=== PATIENT | female | born 1950 | race Caucasian/White ===

== ENCOUNTER 2019-04-23 13:18 | Observation (INO) | payer MEDICARE ==
[2019-04-23 14:11] LABS: ABS Basophils 0.1 10^3/ul (0-0.2); ABS Eosinophils 0.1 10^3/ul (0-0.6); ABS Lymphocytes 2.1 10^3/ul (1.0-4.8); ABS Monocytes 0.4 10^3/ul (0-0.8); ABS Neutrophils 4.1 10^3/ul (1.5-7.7); Eosinophil % 1.2 %; Hematocrit 40 % (35-47); Hemoglobin 13.5 g/dL (12.0-16.0); Lymphocyte % 30.9 %; Mean Corpuscular HGB Conc 34 g/dL (31-36); Mean Corpuscular Hemoglobin 29 pg (27-31); Mean Corpuscular Volume 84 fL (80-97); Mean Platelet Volume 9.4 fL (7.4-10.4); Platelet Count 267 10^3/uL (150-450); Red Blood Count 4.74 10^6 /uL (3.70-4.87); Red Cell Distribution Width 14 % (10-15); White Blood Count 6.8 10^3/uL (3.5-10.8)
[2019-04-23 14:14] LABS: INR 1.09 (0.82-1.09)
[2019-04-23 14:27] LABS: Albumin 4.2 g/dL (3.2-5.2); Albumin/Globulin Ratio 1.2 (1-3); BUN/Creatinine Ratio 16.1 (8-20); Calcium 9.4 mg/dL (8.6-10.3); EGFR African American 78.6 (>60); EGFR Non-African American 64.9 (>60); Globulin 3.6 g/dL (2-4); Total Bilirubin 0.5 mg/dL (0.2-1.0); Total Protein 7.8 g/dL (6.4-8.9); Troponin I 3.96 ng/mL (<0.03)
[2019-04-23] MEDS ORDERED: NS 0.9% 1000 ML** 1,000 ML IV ONE (14:35)
[2019-04-23] MEDS ORDERED: Aspirin 81 mg CHEW TAB* 81 MG TAB.CHEW PO ONE (14:35)
[2019-04-23] MEDS ORDERED: Heparin DRIP 25,000 UNITS(*) 25,000 UNITS/500 ML BAG IV SCH (14:45)
--- NOTE | 2019-04-23 14:47 | ED ---
HPI Chest Pain - HPI Summary HPI Summary: The patient is a 69-year-old female presenting to [facility] with a chief complaint of right shoulder pain radiating down the arm and upper sternal chest tightness onset on 04/18/2019. She reports that she has been experiencing various symptoms for the last few days which seem to be worsening, so she came into the ED. She notes right shoulder pain radiating down the arm with numbness this morning. She also has been experiencing dizziness for the last three days, which has been intermittent. She endorses diaphoresis, SOB, and sleep disturbance secondary to pain. She also has been experiencing GERD symptoms more than usual. She endorses fatigue, but she is otherwise asymptomatic at this time. Symptoms currently rated 1/10 in severity. Symptoms somewhat worse with exertion. She denies any calf pain or swelling, nausea, vomiting, sore throat, abdominal pain. No history of blood clots, cardiac disease, or diabetes. Past medical history significant for thyroid disease, hypertension (medicated). Family history significant for cardiac disease. Nonsmoker, rare EtOH, no substance use. Medications reviewed. Allergies noted. - History of Current Complaint Chief Complaint: EDChestPainROMI Time Seen by Provider: 04/23/19 14:23 Hx Obtained From: Patient Onset/Duration: Started Days Ago, Still Present Timing: Intermittent Initial Severity: Moderate Current Severity: Mild Pain Intensity: 1 Pain Scale Used: 0-10 Numeric Chest Pain Location: Upper Sternal Chest Pain Radiates To:: Shoulder - right, Arm - right Character: Sharp/Stabbing Aggravating Factor(s): Exertion Alleviating Factor(s): Rest Associated Signs and Symptoms: Positive: Numbness, Dizziness, Shortness of Breath, Diaphoresis. Negative: Nausea, Calf Pain/Swelling - Allergy/Home Medications Allergies/Adverse Reactions: Allergies Allergy/AdvReac Type Severity Reaction Status Date / Time latex Allergy Itching Verified 04/23/19 14:44 Home Medications: Home Medications Ascorbic Acid TAB* [Vitamin C TAB*] 500 mg PO DAILY 04/23/19 [History Confirmed 04/23/19] Cannabidiol (CBD) Extract (NF) [Epidiolex (NF)] 100 mg PO DAILY 04/23/19 [ History Confirmed 04/23/19] Cholecalciferol TAB* [Vitamin D TAB*] 1,000 unit PO DAILY 04/23/19 [History Confirmed 04/23/19] Elderberry Fruit and Flower [Black Elderberry 575 mg] 1 cap PO DAILY 04/23/19 [ History Confirmed 04/23/19] Thyroid TAB* [Thyroid TAB 30 MG*] 30 mg PO DAILY 04/23/19 [History Confirmed 01/30] Zinc 50 mg PO DAILY 04/23/19 [History Confirmed 04/23/19] PMH/Surg Hx/FS Hx/Imm Hx Endocrine/Hematology History: Reports: Hx Thyroid Disease Denies: Hx Diabetes Cardiovascular History: Reports: Hx Hypertension Respiratory History: Denies: Hx Asthma, Hx Chronic Obstructive Pulmonary Disease (COPD) GI History: Denies: Hx Ulcer - Cancer History Hx Chemotherapy: No Hx Radiation Therapy: No - Surgical History Surgical History: Yes Surgery Procedure, Year, and Place: appendectomy; titanium screw L 3rd finger - Immunization History Immunizations Up to Date: Yes Infectious Disease History: No Infectious Disease History: Denies: Hx Hepatitis, Hx Human Immunodeficiency Virus (HIV), History Other Infectious Disease, Traveled Outside the [place] in Last 30 Days - Family History Known Family History: Positive: Cardiac Disease - Social History Alcohol Use: Rare Alcohol Amount: Wine Hx Substance Use: No Substance Use Type: Reports: None Hx Tobacco Use: No Smoking Status (MU): Never Smoked Tobacco Type: Cigarettes Amount Used/How Often: For < 1 year in her twenties Have You Smoked in the Last Year: No Review of Systems Positive: Fatigue, Other - sleep disturbance with pain. Negative: Skin Diaphoresis Positive: Chest Pain - tightness in upper sternum Positive: Shortness Of Breath Negative: Vomiting, Nausea Positive: Myalgia - radiating from right shoulder down arm. Negative: Edema - calf, Other - calf pain Neurological/Mental Status: Other - intermittent dizziness Positive: Numbness - right arm All Other Systems Reviewed And Are Negative: Yes Physical Exam - Summary Physical Exam Summary: Constitutional: Well-developed, Well-nourished, Alert. (-) Distressed Skin: Warm, Dry HENT: Normocephalic; Atraumatic Eyes: Conjunctiva normal Neck: Musculoskeletal ROM normal neck. (-) JVD, (-) Stridor, (-) Tracheal deviation Cardio: Rhythm regular, rate normal, Heart sounds normal; Intact distal pulses; The pedal pulses are 2+ and symmetric. Radial pulses are 2+ and symmetric. (-) Murmur Pulmonary/Chest wall: Effort normal. (-) Respiratory distress, (-) Wheezes, (-) Rales Abd: Soft, (-) tenderness, (-) Distension, (-) Guarding, (-) Rebound Musculoskeletal: (-) Edema Lymph: (-) Cervical adenopathy Neuro: Alert, Oriented x3 Psych: Mood and affect Normal Triage Information Reviewed: Yes Vital Signs On Initial Exam: Initial Vitals Temp Pulse Resp BP Pulse Ox 96.1 F 81 18 186/101 93 04/23/19 13:23 04/23/19 13:23 04/23/19 13:23 04/23/19 13:23 04/23/19 13:23 Vital Signs Reviewed: Yes Procedures - Sedation Patient Received Moderate/Deep Sedation with Procedure: No Diagnostics - Vital Signs Vital Signs Temp Pulse Resp BP Pulse Ox 04/23/19 14:20 74 184/109 97 04/23/19 14:19 76 95 04/23/19 13:23 96.1 F 81 18 186/101 93 - Laboratory Lab Results: Lab Results 04/23/19 04/23/19 04/23/19 Range/Units 13:48 13:48 13:48 WBC 6.8 (3.5-10.8) 10^3/uL RBC 4.74 (3.70-4.87) 10^6 /uL Hgb 13.5 (12.0-16.0) g/dL Hct 40 (35-47) % MCV 84 (80-97) fL MCH 29 (27-31) pg MCHC 34 (31-36) g/dL RDW 14 (10-15) % Plt Count 267 (150-450) 10^3/uL MPV 9.4 (7.4-10.4) fL Neut % (Auto) 60.9 % Lymph % (Auto) 30.9 % [place] % (Auto) 5.4 % Eos % (Auto) 1.2 % Baso % (Auto) 1.6 % Absolute Neuts (auto) 4.1 (1.5-7.7) 10^3/ul Absolute Lymphs (auto) 2.1 (1.0-4.8) 10^3/ul Absolute Monos (auto) 0.4 (0-0.8) 10^3/ul Absolute Eos (auto) 0.1 (0-0.6) 10^3/ul Absolute Basos (auto) 0.1 (0-0.2) 10^3/ul Absolute Nucleated RBC 0.0 10^3/ul Nucleated RBC % 0.0 INR (Anticoag Therapy) 1.09 (0.82-1.09) Sodium 137 (135-145) mmol/L Potassium 4.0 (3.5-5.0) mmol/L Chloride 105 (101-111) mmol/L Carbon Dioxide 25 (22-32) mmol/L Anion Gap 7 (2-11) mmol/L BUN 14 (6-24) mg/dL Creatinine 0.87 (0.51-0.95) mg/dL Est GFR ( Amer) 78.6 (>60) Est GFR (Non-Af Amer) 64.9 (>60) BUN/Creatinine Ratio 16.1 (8-20) Glucose 96 (70-100) mg/dL Calcium 9.4 (8.6-10.3) mg/dL Total Bilirubin 0.50 (0.2-1.0) mg/dL AST 58 H (13-39) U/L ALT 58 H (7-52) U/L Alkaline Phosphatase 57 (34-104) U/L Troponin I 3.96 H* (<0.03) ng/mL Total Protein 7.8 (6.4-8.9) g/dL Albumin 4.2 (3.2-5.2) g/dL Globulin 3.6 (2-4) g/dL Albumin/Globulin Ratio 1.2 (1-3) Result Diagrams: 04/23/19 13:48 04/23/19 13:48 Lab Statement: Any lab studies that have been ordered have been reviewed, and results considered in the medical decision making process. - EKG 1329 Cardiac Rate: NL - 70 BPM EKG Rhythm: Sinus Rhythm Summary of EKG Findings: An EKG at 1329 reveals sinus rhythm at [address] Dangelo has reviewed and interpreted this EKG. 1434 Cardiac Rate: NL - 66 BPM EKG Rhythm: Sinus Rhythm Summary of EKG Findings: An EKG at 1434 reveals sinus rhythm at [address] Dangelo has reviewed and interpreted this EKG. Re-Evaluation - Re-Evaluation First Eval Re-Evaluation Time: 14:45 Comment: Patient agreeable with plan for admission. Chest Pain Course/Dx - Course Course Of Treatment: 69 y/o female presenting with right shoulder pain radiating down the arm with numbness, as well as upper sternal chest tightness onset on 04/18/2019 accompanied by intermittent episodes of dizziness, diaphoresis , and SOB. She is asymptomatic at this time. Hx includes hypertension, no other cardiac disease. FHx of cardiac disease in father. Physical exam reveals no significant abnormalities. An EKG at 1329 reveals sinus rhythm at 70 BPM, no STEMI. Blood work reveals elevated troponin of 3.96, AT of 58, ALT of 58. IV access obtained. Patient administered ASA and fluids. Patient placed on Heparin drip. Repeat EKG at 1434 reveals sinus rhythm at 66 BPM, no STEMI. I spoke with Dr. Batista from cardiology, who will consult for the patient and see her in the emergency department. He will take her to the [facility] sewer. Patient understands and agrees with plan. - Diagnoses Provider Diagnoses: NSTEMI (non-ST elevated myocardial infarction) - Provider Notifications Discussed Care Of Patient With: Julián Batista - cardiology Time Discussed With Above Provider: 14:45 Instructed by Provider To: Other - I discussed the patient's case with Dr. Batista , and he will consult for the patient and see her in the ED. He accepts the patient for admission to [facility] sewer. Discharge ED - Sign-Out/Discharge Documenting (check all that apply): Patient Departure - Patient accepted for admission by Dr. Batista. - Discharge Plan Condition: Stable Disposition: ADMITTED TO [facility] - Billing Disposition and Condition Condition: STABLE Disposition: Admitted to [facility] - Attestation Statements Document Initiated by Carol: Yes Documenting Scribe: Emi Mast Provider For Whom Carol is Documenting (Include Credential): DO Stephanie Queenibe Attestation: Emi Pizarro scribed for Dr. Mateo Dangelo DO on 04/23/19 at 1942. Scribe Documentation Reviewed: Yes Provider Attestation: The documentation as recorded by the Emi solorzano accurately reflects the service I personally performed and the decisions made by me, Dr. Mateo Dangelo DO Status of Scribdebora Document: Viewed
[2019-04-23 14:58] LABS: Activated Partial Thrombo Time 37.1 seconds (26.0-38.0)
[2019-04-23] MEDS ORDERED: Heparin for STEMI(*) 5,000 UNITS/ML 1 ML VIAL IV ONE ×2 (15:05→15:10)
[2019-04-23] MEDS ORDERED: Diazepam TAB(*) 5 MG PO PRN (15:12)
[2019-04-23] MEDS ORDERED: diPHENhydraMINE PO* 25 MG PO PRN (15:12)
[2019-04-23] MEDS ORDERED: Ticagrelor* 90 MG TAB PO ONE (15:13)
[2019-04-23] MEDS ORDERED: Heparin(*) 1000 UNIT/ML 10 ML VIAL CATH LAB IV ONE (15:43)
[2019-04-23] MEDS ORDERED: Midazolam* 1 MG/ML 5 ML VIAL (5 MG) ONE (15:43)
[2019-04-23] MEDS ORDERED: fentaNYL* 50 MCG/ML 2 ML VIAL (100 MCG VIAL) ONE (15:43)
[2019-04-23] MEDS ORDERED: VERAPAMIL 2.5 MG/ML 2 ML VIAL ** 5 mg/2 ml ONE (15:43)
[2019-04-23] MEDS ORDERED: Heparin 2 UNITS/ML IVPREMIX* 2,000 ML IV ONE (15:44)
[2019-04-23] MEDS ORDERED: Lidocaine 1% INJ* 10 MG/ML 30 ML SDV ONE (15:44)
[2019-04-23] MEDS ORDERED: Iohexol 350 (CONTRAST) 200 ML MDV IV ONE ×2 (15:44→16:18)
[2019-04-23] MEDS ORDERED: nitroGLYCERIN DRIP* 25,000 MCG/250 ML BTL ONE (15:44)
[2019-04-23] MEDS ORDERED: NS 0.9% 1000 ML** 1,000 ML IV SCH (16:45)
[2019-04-23] MEDS ORDERED: Acetaminophen TAB* 325 MG PO PRN (16:47)
--- NOTE | 2019-04-23 18:26 | HP ---
CC: Dr. Laurent Gustafson * ADMISSION HISTORY AND PHYSICAL: DATE OF ADMISSION: 04/23/19 INDICATION FOR ADMISSION: NSTEMI. HISTORY OF PRESENT ILLNESS: The patient is a 69-year-old female with a history of obesity, hypertension, hypercholesterolemia, strong family history of coronary artery disease who came to the emergency room because of chest and throat pain. The patient states for the last 4 days, she has felt unwell. She has been profoundly fatigue. She has also had episodes where she felt throat discomfort radiating into her right shoulder sometimes occurring with exertion, sometimes occurring at rest. The patient denies any palpitations. She denies any lightheadedness, dizziness, or syncope. The patient does describe some shortness of breath. No positive episodes of diaphoresis. The patient had these symptoms this morning and was urged by her friend to come to the emergency room. On arrival to the emergency room, her EKG showed minimal ST segment elevations in lead 2, 3, AVF, and lead V6. Her initial troponin level was 3.96. PAST MEDICAL HISTORY: Significant for: 1. Hypertension. 2. Hypercholesterolemia. 3. Hypothyroidism. MEDICATIONS: Outpatient medications: 1. Zinc 50 mg a day. 2. Elderberry fruit. 3. Ascorbic acid 500 mg a day. 4. Thyroid 30 mg daily. 5. Vitamin D 1000 units a day. ALLERGIES: LATEX. SOCIAL HISTORY: She works at office. She denies tobacco or alcohol use. She does not get any regular exercise but does walk occasionally. FAMILY HISTORY: Positive for early coronary artery disease in her brothers and uncles. REVIEW OF SYSTEMS: Negative for fevers and chills. Positive for weight gain of 20 pounds in the last 3 months. Positive for stress. Negative for changes in bowel or bladder habits. Other 12 points review is unremarkable. PHYSICAL EXAMINATION VITAL SIGNS: Height is 5 feet 6 inches, weight is 270 pounds, temperature 96.1, heart rate 81, blood pressure 186/101, respiratory rate 18, oxygen saturation is 93% on room air. HEENT: Sclerae are anicteric. Oropharynx is pink without erythema. Carotids are 2+ without bruits. JVD is normal. Thyroid is normal. LUNGS: Clear to auscultation bilaterally. No dullness on percussion. CARDIAC EXAM: S1 and S2 without any murmurs, rubs, or gallops. PMI is normal. ABDOMEN: Soft, nontender, and nondistended with normoactive bowel sounds. EXTREMITIES: Show minimal edema. She has 2+ pulses throughout. NEURO: The patient is awake, alert, oriented. She moves all 4 extremities equally. LABORATORY STUDIES: CBC within normal limits. Chemistries is within normal limits. Again troponin level is elevated at 3.96. INR is 1.09. IMAGING: Again, EKG shows normal sinus rhythm with minimal ST segment elevation in inferior leads. IMPRESSION: This is a 69-year-old female with recent symptoms of chest pain, throat pain, and right shoulder pain consistent with angina. Her initial EKG is consistent with ST segment elevation. She has moderate troponin level of 3.96, this is likely consistent with NSTEMI. The patient is started on heparin, she was given aspirin and Brilinta. The patient is scheduled for cardiac catheterization. Risks and benefits of this were described in great detail with the patient, she is willing to proceed. Further recommendations pending results of her cardiac catheterization. [id number]/[facility] #: [id number] [facility] HOSPITALObinna
--- NOTE | 2019-04-23 19:09 | CATH ---
"*[facility]* [place] [address] Main: [phone] [email or web address] Cardiac Catheterization Patient: Amie Bowens : 1950 Study Date: 04/23/2019 Age: 69 Gender: F HR: Height: 66 in /167.6 cm BSA: 2.46 m^2 Weight: 269.9 lb /122.7 kg BMI: 43.7 kg/m^2 [facility] Coordinator: Julián Batista MD Ordering Physician: Julián Batista MD Referring Physician: Julián Batista MD, Lester Yeboah, --- - Left coronary angiography. - Right coronary angiography. - Left heart catheterization with angiography. Summary: 1. Left ventricle: Systolic function is mildly to moderately reduced. The estimated ejection fraction is 35-40%. Moderate hypokinesis of the anteroapical myocardium. 2. Normal Coronary Arteries. Recommendations: Treatment for Non ischemic Cardiomyopathy (Takasubo's) History: Risk factors: Hypertension. Family history is significant for coronary artery disease. Labs, prior tests, procedures, and surgery: Blood tests: Troponin I (pre-procedure) of 3.96 ng/ml. International normalized ratio (INR) of 1.09. Partial thromboplastin time (PTT) of 37.1 sec. Serum potassium (K) of 4 mEq/l. Serum sodium (Na) of 137 mEq/l. Serum creatinine (current admission) of 0.87 mg/dl. Blood urea nitrogen of 14 mg/dl. Glucose of 96 mg/dl. Platelet count of 267 th/ul. White blood cell count (WBC) of 0.01 th/ul. Red blood cell count (RBC) of 4740 th/ul. Hematocrit of 40 %. Hemoglobin (pre-procedure) of 13.5 g/dl. Study data: Location: Catheterization laboratory. Consent: The risks, benefits, and alternatives to the procedure were explained to the patient and/or their healthcare contact center representative and written informed consent was obtained. All available pre-procedure labs were reviewed. Height: 167.6 cm. 66 in. Weight: 122.7 kg. 269.9 lb. Body surface area: 2.46 m^2. Body mass index: 43.7 kg/m^2. Procedure: 1. Initial setup. The patient was brought to the laboratory. Surface ECG leads, blood pressure measurements, and pulse oximetric signals were monitored. A baseline seven lead ECG was recorded. A time out was observed per protocol. 2. Skin preparation. The planned puncture sites were prepped and draped in the usual sterile manner. 3. Local anesthesia. 1% lidocaine was administered. 4. Sedation. was administered. 5. Local anesthesia. 1% lidocaine (2 ml) was administered. 6. Supplemental oxygen. Oxygen, 2 L/min was administered throughout the procedure. 7. Right radial artery access. A 6F Glidesheath Slender sheath was advanced into the vessel. 8. Supplemental oxygen. Oxygen, 4 L/min was administered throughout the procedure. 9. Supplemental oxygen. Oxygen, 5 L/min was administered throughout the procedure. 10. Selective left coronary angiography. A 5F FL 3.5 Diagnostic Impulse catheter was advanced into the left coronary vessel ostium under fluoroscopic guidance. Contrast was injected. Images were obtained in multiple projections. 11. Selective right coronary angiography. A 5F AR 1 Impulse catheter was advanced into the right coronary vessel ostium under fluoroscopic guidance. Contrast was injected. Images were obtained in multiple projections. 12. Left heart catheterization with angiography. A 5F PIG Short Radial catheter was advanced across the aortic valve to the left ventricle under fluoroscopic guidance. 35 ml of contrast was injected at 10 ml/s. 13. Supplemental oxygen. Oxygen, 2 L/min was administered throughout the procedure. 14. Right radial artery hemostasis. Vessel closure was achieved with a Regular Vasc Band device. Study completion: Minimal estimated blood loss. All catheters inserted during the procedure were removed. There were no apparent complications. Administered medications: Heparin, 4,000units, subcutaneously. Heparin, infusion, at a rate of 1,000units/hr, IV was discontinued. Aspirin, 324mg, PO. Fentanyl, 25mcg, IV. BRILINTA (Ticagrelor), 180mg, PO. VALIUM (Diazepam), 5mg, PO. BENADRYL (Diphenhydramine), 25mg, PO. (Radial) Nitroglycerin, 300mcg, intra-arterially. (Radial) Verapamil, 3mg, intra-arterially. VERSED (Midazolam), for a total dose of 3mg, IV. Contrast: Omnipaque 350 85 ml (total dose). Omnipaque 350 315 ml (wasted). Radiation: Fluoroscopy dose: 156.8 cGy. Discharge: The patient tolerated the procedure well and was discharged from the lab in stable condition. Findings Coronary arteries: The coronary circulation is co-dominant. Left main: Normal, 0% stenosis. LAD: Normal, 0% stenosis. Left circumflex: Normal, 0% stenosis. Right coronary: Normal, 0% stenosis. Left ventricle: Systolic function is mildly to moderately reduced. The estimated ejection fraction is 35-40%. Regional wall motion abnormalities: Moderate hypokinesis of the anteroapical myocardium. Hemodynamics: + + + |Stage description |Condition 1 - | + + + |LV pressure s/d, ed |142/17, 28, dP/be=3842 mm Hg/s| + + + |Arterial pressure s/d (m)|142/77 (108) | + + + Prepared and electronically signed by Julián Batista MD 04/23/2019 19:09"
[2019-04-23] MEDS: Carvedilol TAB* 3.125 MG PO SCH (20:48)
[2019-04-24 06:45] LABS: Anion Gap 8 mmol/L (2-11); BUN/Creatinine Ratio 14.6 (8-20); Blood Urea Nitrogen 12 mg/dL (6-24); CO2 Carbon Dioxide 22 mmol/L (22-32); Calcium 8.6 mg/dL (8.6-10.3); Chloride 109 mmol/L (101-111); Cholesterol 180 mg/dL; EGFR African American 84.1 (>60); EGFR Non-African American 69.5 (>60); Glucose 98 mg/dL (70-100); HDL Cholesterol 40.1 mg/dL; LDL Cholesterol 106 mg/dL; Potassium 3.7 mmol/L (3.5-5.0); Sodium 139 mmol/L (135-145); Triglycerides 169 mg/dL
[2019-04-24 06:54] LABS: Troponin I 2.56 ng/mL (<0.03)
[2019-04-24] MEDS: Carvedilol TAB* 3.125 MG PO SCH (07:51)
[2019-04-24] MEDS ORDERED: Lisinopril TAB* 5 MG PO ONE (08:31)
[2019-04-24] MEDS ORDERED: Lisinopril TAB* 5 MG PO SCH (09:00)
[2019-04-24] MEDS ORDERED: Aspirin 81 mg CHEW TAB* 81 MG TAB.CHEW PO SCH (09:00)
[2019-04-24 09:38] LABS: Creatine Kinase 161 U/L (10-223)
[2019-04-24 09:43] LABS: CKMB ng/mL 40.5 ng/mL (0.6-6.3)
[2019-04-24 09:44] LABS: CKMB ng/mL 18.2 ng/mL (0.6-6.3)
--- NOTE | 2019-04-24 09:46 | PN ---
<Kylah Monte - Last Filed: 04/24/19 09:41> Subjective Date of Service: 04/24/19 - Troponin elevation Interval History: No events last night. Patient has not had recurrent c/o chest pain since presentation. States dyspnea resolved last night. She offers no complaints at this time. Medications Active Medications: Acetaminophen (Tylenol Tab*) 650 mg PO Q4H PRN PRN Reason: PAIN - MILD Atorvastatin Calcium (Lipitor*) 20 mg PO 1700 SVETLANA Carvedilol (Coreg Tab*) 3.125 mg PO BID [facility] Last Admin: 04/24/19 07:51 Dose: 3.125 mg Lisinopril (Prinivil Tab*) 5 mg PO DAILY [facility] Objective Vital Signs: Temp Pulse Resp BP Pulse Ox 97.5 F 60 17 128/65 97 04/24/19 06:39 04/24/19 06:39 04/24/19 07:48 04/24/19 06:39 04/24/19 06:39 Oxygen Devices in Use Now: None Appearance: Sitting upright in bed, A+OX3. Eyes: No Scleral Icterus, PERRLA Ears/Nose/Mouth/Throat: Mucous Membranes Moist Neck: Trachea Midline, - - unclear JVP. Respiratory: Symmetrical Chest Expansion and Respiratory Effort, Clear to Auscultation Cardiovascular: RRR, No Edema, - - Normal S1, S2. Extremities: No Edema, - - right radial access site intact, 3+ radial pulse.no hematoma. non tender to palpation. Neurological: Alert and Oriented x 3 Lines/Tubes/Other Access: Clean, Dry and Intact Peripheral IV Laboratory Results: 04/23/19 13:48 04/24/19 05:50 INR (Anticoag Therapy) 1.09 (0.82-1.09) 04/23/19 13:48 APTT 37.1 seconds (26.0-38.0) 04/23/19 13:48 Total Bilirubin 0.50 mg/dL (0.2-1.0) 04/23/19 13:48 AST 58 U/L (13-39) H 04/23/19 13:48 ALT 58 U/L (7-52) H 04/23/19 13:48 Alkaline Phosphatase 57 U/L (34-104) 04/23/19 13:48 Total Protein 7.8 g/dL (6.4-8.9) 04/23/19 13:48 Albumin 4.2 g/dL (3.2-5.2) 04/23/19 13:48 Globulin 3.6 g/dL (2-4) 04/23/19 13:48 Albumin/Globulin Ratio 1.2 (1-3) 04/23/19 13:48 Triglycerides 169 mg/dL 04/24/19 05:50 Cholesterol 180 mg/dL 04/24/19 05:50 LDL Cholesterol 106 mg/dL 04/24/19 05:50 HDL Cholesterol 40.1 mg/dL 04/24/19 05:50 04/23/19 04/24/19 13:48 05:50 Troponin I 3.96 H* 2.56 H* Laboratory Results - last 24 hr 04/23/19 04/23/19 04/23/19 13:48 13:48 13:48 WBC 6.8 RBC 4.74 Hgb 13.5 Hct 40 MCV 84 MCH 29 MCHC 34 RDW 14 Plt Count 267 MPV 9.4 Neut % (Auto) 60.9 Lymph % (Auto) 30.9 Gilliam % (Auto) 5.4 Eos % (Auto) 1.2 Baso % (Auto) 1.6 Absolute Neuts (auto) 4.1 Absolute Lymphs (auto) 2.1 Absolute Monos (auto) 0.4 Absolute Eos (auto) 0.1 Absolute Basos (auto) 0.1 Absolute Nucleated RBC 0.0 Nucleated RBC % 0.0 INR (Anticoag Therapy) 1.09 APTT 37.1 Sodium 137 Potassium 4.0 Chloride 105 Carbon Dioxide 25 Anion Gap 7 BUN 14 Creatinine 0.87 Est GFR ( Amer) 78.6 Est GFR (Non-Af Amer) 64.9 BUN/Creatinine Ratio 16.1 Glucose 96 Calcium 9.4 Total Bilirubin 0.50 AST 58 H ALT 58 H Alkaline Phosphatase 57 Total Creatine Kinase 271 H CK-MB (CK-2) 40.5 H Troponin I 3.96 H* Total Protein 7.8 Albumin 4.2 Globulin 3.6 Albumin/Globulin Ratio 1.2 Triglycerides Cholesterol LDL Cholesterol HDL Cholesterol 04/24/19 05:50 WBC RBC Hgb Hct MCV MCH MCHC RDW Plt Count MPV Neut % (Auto) Lymph % (Auto) Gilliam % (Auto) Eos % (Auto) Baso % (Auto) Absolute Neuts (auto) Absolute Lymphs (auto) Absolute Monos (auto) Absolute Eos (auto) Absolute Basos (auto) Absolute Nucleated RBC Nucleated RBC % INR (Anticoag Therapy) APTT Sodium 139 Potassium 3.7 Chloride 109 Carbon Dioxide 22 Anion Gap 8 BUN 12 Creatinine 0.82 Est GFR ( Amer) 84.1 Est GFR (Non-Af Amer) 69.5 BUN/Creatinine Ratio 14.6 Glucose 98 Calcium 8.6 Total Bilirubin AST ALT Alkaline Phosphatase Total Creatine Kinase 161 CK-MB (CK-2) 18.2 H Troponin I 2.56 H* Total Protein Albumin Globulin Albumin/Globulin Ratio Triglycerides 169 Cholesterol 180 LDL Cholesterol 106 HDL Cholesterol 40.1 Diagnostic Imaging: To view the full procedure details, close this document and click on the camera icon from the Reports list. *[facility]* [place] [address] Main: [phone] [email or web address] Cardiac Catheterization Patient: Amie Bowens : 1950 Study Date: 04/23/2019 Age: 69 Gender: F HR: Height: 66 in /167.6 cm BSA: 2.46 m^2 Weight: 269.9 lb /122.7 kg BMI: 43.7 kg/m^2 Poultry Husbandry Teacher: Julián Batista MD Ordering Physician: Julián Batista MD Referring Physician: Julián Batista MD, Lester Yeboah, --- - Left coronary angiography. - Right coronary angiography. - Left heart catheterization with angiography. Summary: 1. Left ventricle: Systolic function is mildly to moderately reduced. The estimated ejection fraction is 35-40%. Moderate hypokinesis of the anteroapical myocardium. 2. Normal Coronary Arteries. Recommendations: Treatment for Non ischemic Cardiomyopathy (Takasubo's) History: Risk factors: Hypertension. Family history is significant for coronary artery disease. Labs, prior tests, procedures, and surgery: This report is only to be considered final once signed by the Provider(s) as displayed in the "<Electronically Signed by >" field (s). Absence of a signature indicates the report is in a draft status and still needs to be finalized. In the event this document was created by someone other than the signing Provider, the individual initiating the document will be listed in the "Entered by:" or "Dictated by:" segal. EKG Data: 04/24/2019; Sinus rhythm rate [address] segment elevation in inferolateral leads. Telemetry reviewed ; Sinus rhythm rate 70's no PVC/VT Assessment/Plan #1 c/o Dyspnea with chest pain in the setting of minimal inferolateral ST elevation and troponin elevation. C did not reveal obstructive CAD. + anterior hypokinesis LVEF 35-40% on LV gram ? Takotsubo. Echo pending at this time. On Coreg 3.125mg Po BID, Lisinopril 2.5m/day. will increase Lisinopril to 5mg/day. Add Lipitor 20 QHS ( LDL 109) and ASA 81/day. Right radial access site intact, no hematoma. 3+ radial pulse. #2 h/o HTN; currently normotensive of Coreg and ACEI #3 h/o hypercholesterolemia;now on low dose statin therapy. Will need repeat FLP/LFT in 6 weeks time. Of note she had mild transaminitis 04/23/2019. #4 disposition; pending course. await echo. Will likely sign off if echo c/w LV gram from 04/23/2019. Will d/w Dr. Celaya. Attending: Olivia Celaya <Olivia Celaya - Last Filed: 04/24/19 16:09> Medications Active Medications: Acetaminophen (Tylenol Tab*) 650 mg PO Q4H PRN PRN Reason: PAIN - MILD Aspirin (Aspirin 81 Mg Chew Tab*) 81 mg PO DAILY [facility] Last Admin: 04/24/19 10:30 Dose: 81 mg Atorvastatin Calcium (Lipitor*) 20 mg PO 1700 [facility] Carvedilol (Coreg Tab*) 3.125 mg PO BID [facility] Last Admin: 04/24/19 07:51 Dose: 3.125 mg Lisinopril (Prinivil Tab*) 5 mg PO DAILY [facility] Objective Vital Signs: Temp Pulse Resp BP Pulse Ox 98.6 F 65 17 116/57 94 04/24/19 11:23 04/24/19 11:23 04/24/19 11:23 04/24/19 11:23 04/24/19 11:23 Laboratory Results: 04/23/19 13:48 04/24/19 05:50 INR (Anticoag Therapy) 1.09 (0.82-1.09) 04/23/19 13:48 APTT 37.1 seconds (26.0-38.0) 04/23/19 13:48 Total Bilirubin 0.50 mg/dL (0.2-1.0) 04/23/19 13:48 AST 58 U/L (13-39) H 04/23/19 13:48 ALT 58 U/L (7-52) H 04/23/19 13:48 Alkaline Phosphatase 57 U/L (34-104) 04/23/19 13:48 CK-MB (CK-2) 18.2 ng/mL (0.6-6.3) H 04/24/19 05:50 Total Protein 7.8 g/dL (6.4-8.9) 04/23/19 13:48 Albumin 4.2 g/dL (3.2-5.2) 04/23/19 13:48 Globulin 3.6 g/dL (2-4) 04/23/19 13:48 Albumin/Globulin Ratio 1.2 (1-3) 04/23/19 13:48 Triglycerides 169 mg/dL 04/24/19 05:50 Cholesterol 180 mg/dL 04/24/19 05:50 LDL Cholesterol 106 mg/dL 04/24/19 05:50 HDL Cholesterol 40.1 mg/dL 04/24/19 05:50 04/23/19 04/24/19 13:48 05:50 Troponin I 3.96 H* 2.56 H* Assessment/Plan The patient was seen and examined by me personally. She is feeling very well, no longer has shoulder and chest pain. Stress at home has been diminished. Echo shows EF40- 45%, improved, apical severe hypokinesis. We discussed mechanism of Takasubo syndrome. We discussed CM, treatment, probable normalization with medication, lifestyle changes, time. I agree with the above recommendations for CM and CAD risks. Patient interested in cardiac rehab.
--- NOTE | 2019-04-24 10:03 | ECHO ---
*[facility]* [place] [address] Fax #: [phone] Transthoracic Echocardiogram Patient: Amie Bowens : 1950 Study Date: 04/24/2019 Age: 69 Gender: F HR: 61 bpm Height: 66 in /167.6 cm BSA: 2.27 m^2 Weight: 269.4 lb /122.5 kg BMI: 43.6 kg/m^2 *Inspector Quality Assurance: * Emily Mazariegos RDCS RN *Referring Physician: * Julián Batista MD *Reading Physician: * Olivia Celaya MD Indications: Chest Pain, unspecified. History: Risk factors: Hypertension. Morbidly obese. Family history is significant for coronary artery disease. Conclusions Summary: - Procedure narrative: Image quality was fair. The patient did not want Definity used to enhance imaging. - Left ventricle: Wall thickness is mildly increased. Systolic function is mildly to moderately reduced. The estimated ejection fraction is 40-45%. Marked hypokinesis of the apical on third of the myocardium. Doppler parameters are consistent with abnormal left ventricular relaxation (grade 1 diastolic dysfunction). - Right ventricle: Wall thickness is mildly to moderately increased. Systolic function is normal. - All valves appear structurally normal with normal function. - Ascending aorta: The ascending aorta is mildly dilated at 3.6 cm. - Pulmonary arteries: Systolic pressure cannot be accurately estimated. - No prior echocardiogram to compare. Study data: Transthoracic echocardiogram. Procedure: Transthoracic echocardiography was performed. Image quality was fair. The study was technically limited due to body habitus. The patient did not want Definity used to enhance imaging. Complete 2D, spectral Doppler, and color flow Doppler. Location: Bedside. Patient status: Observation. Patient room number: 443-01. Rhythm: Normal sinus rhythm. Findings Left ventricle: The cavity size is normal. Wall thickness is mildly increased. Systolic function is mildly to moderately reduced. The estimated ejection fraction is 40-45%. Regional wall motion abnormalities: Hypokinesis of the apical myocardium. Doppler parameters are consistent with abnormal left ventricular relaxation (grade 1 diastolic dysfunction). Right ventricle: The cavity size is at the upper limits of normal. Wall thickness is mildly to moderately increased. Systolic function is normal. Left atrium: The atrium is normal in size. Right atrium: The atrium is normal in size. Mitral valve: The leaflets are mildly thickened. There is no evidence of stenosis. There is no significant regurgitation. Aortic valve: Not well visualized. The leaflets are mildly thickened. There is no evidence of stenosis. There is no regurgitation. Tricuspid valve: Not well visualized. There is no significant regurgitation. Pulmonic valve: Not well visualized. There is no evidence of stenosis. There is no regurgitation. Aorta: Aortic root: The aortic root is not dilated. Ascending aorta: The ascending aorta is mildly dilated at 3.6 cm. Aortic arch: The aortic arch is not dilated. Pericardium: A prominent pericardial fat pad is present. There is no significant pericardial effusion. Pulmonary arteries: Not well visualized. Systolic pressure cannot be accurately estimated. Systemic veins: Inferior vena cava: Not well visualized. Measurements Left ventricle Value Ref Right atrium Value Ref MALINDA, LAX 4.0 cm 3.8 - 5.2 ML dim, ES, A4C 3.5 cm 2.6 - 4.4 ESD, LAX 2.8 cm 2.2 - 3.5 SI dim, ES, A4C 4.6 cm 3.4 - 5.3 FS, LAX 30 % 27 - 45 PW, ED (H) 1.2 cm 0.6 - 0.9 Aortic valve Value Ref IVS/PW, ED 0.99 Ghulam diam, ED 2.0 cm --------- E', lat ghulam, TDI (L) 7.0 cm/sec >=10.0 Ghulam diam/bsa, ED 0.9 cm/m^2 -- ------- E/e', lat ghulam, 10 Peak v, S 1.1 m/sec ----- ---- TDI VTI, S 21.8 cm --------- E', med ghulam, TDI (L) 4.9 cm/sec >=7.0 Mean grad, S 3.0 mm Hg -- ------- E/e', med ghulam, 14 Peak grad, S 4.0 mm Hg ----- ---- TDI LVOT/AV, VTI ratio 0.89 --------- E', avg, TDI 6.0 cm/sec E/e', avg, TDI 12 <=14 Mitral valve Value Re f Peak E 0.7 m/sec --------- LVOT Value Ref Peak A 1 m/sec --------- Peak ana laura, S 0.89 m/sec Decel time 232 ms --------- VTI, S 19.5 cm Peak E/A ratio 0.7 --------- Mean grad, S 2 mm Hg Pulmonic valve Value Ref Ventricular septum Value Ref Peak v, S 0.87 m/sec --------- IVS, ED (H) 1.2 cm 0.6 - 0.9 Peak grad, S 3.0 mm Hg --------- Right ventricle Value Ref Aortic root Value Ref AW thickness, ED (H) 0.9 cm 0.1 - 0.5 Root diam 2.7 cm <4.3 MALINDA, LAX 3.0 cm MALINDA minor ax, (H) 3.8 cm 1.9 - 3.5 Ascending aorta Value Ref A4C mid AAo AP diam, S 3.6 cm --------- Left atrium Value Ref Aortic arch Value Ref AP dim, ES 3.80 cm 2.70 - Arch diam 2.8 cm --------- 3.80 ML dim, A4C 3.6 cm Decending aorta Value Ref SI dim, A4C 4.5 cm Saul peak ana laura 0.63 m/sec --------- Vol/bsa, ES, 1-p 19 ml/m^2 11 - 40 A4C Vol/bsa, ES, A/L 25 ml/m^2 16 - 34 Legend: (L) and (H) campbell values outside specified reference range. Prepared and electronically signed by Olivia Celaya MD 04/24/2019 10:03
--- NOTE | 2019-04-24 13:01 | CONSULT ---
Cardiology Note Patient states she used a toothbrush in the bathroom that was not wrapped and is concerned it was a used toothbrush from the prior occupant of her room. clerk to justice notified and asked up today floor covering printer assistant to determine actions needed if any from an infectious risk standpoint.
[2019-04-24 13:40] VITALS: BP 116/57
--- NOTE | 2019-04-24 14:40 | DS ---
CC: Dr. Laurent Gustafson * DISCHARGE SUMMARY: DATE OF ADMISSION: 04/23/19 TENTATIVE DATE OF DISCHARGE: Pending no complications, 04/24/19. ATTENDING PHYSICIAN: Dr. Olivia Celaya.* (DICTATED BY JOHN BRIONES NP) PRIMARY PHYSICIAN: Dr. Laurent Gustafson. ADMITTING DIAGNOSES: 1. Non-ST elevation myocardial infarction. 2. History of hypertension. 3. History of hypercholesterolemia. DISCHARGE DIAGNOSES: 1. 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 Cardiac catheterization did not reveal obstructive coronary disease, LVEF on transthoracic echo 04/24/19, 40% to 45% with hypokinesis involving apical region. 2. History of hypercholesterolemia, now on Lipitor therapy. Mild transaminitis during the course of stay. We will need to repeat fasting lipid panel and liver function test in 6 to 8 weeks' time. 3. History of hypertension, now on lisinopril and Coreg therapy. The patient is normotensive. PROCEDURES PERFORMED: The patient had a cardiac catheterization performed by Dr. Julián Batista on 04/23/19 via right radial access. Per report, there was no obstructive coronary disease noted, LVEF 35% to 40% with apical hypokinesis concerning for takotsubo cardiomyopathy. COMPLICATIONS: None. COURSE OF HOSPITAL STAY: This is a pleasant 69-year-old female patient, who follows Dr. Laurent Gustafson due to a notable history of hypercholesterolemia, hypertension, so she presented to the emergency room due to complaints of throat discomfort radiating into her right shoulder and some times occurring with exertion, but also with rest. She also described shortness of breath. ECG obtained in the emergency department showed minimal ST segment elevation in lead II, III, aVF and lead . Her initial troponin was 3.97. The patient was given 180 mg of Brilinta therapy, initiated on IV heparin therapy and given aspirin therapy and taken to the cardiac catheterization lab to undergo cardiac catheterization. Per cardiac catheterization report, left main was normal, no stenosis; LAD normal, no stenosis; left circumflex normal, no stenosis; right CA normal, no stenosis. LVEF was 35% to 40% with moderate hypokinesis involving the anteroapical myocardium, concerning for takotsubo cardiomyopathy. Troponin peaked at presentation 3.97, CK-MB peaked at 40.5. She had mild transaminitis, both AST and ALT were 58. Echocardiogram was updated on . Per report, LVEF of 40% to 45% with hypokinesis involving the apical myocardium. No significant mitral insufficiency. A 3.6 ascending aortic ectasia noted. The patient has not had recurrent symptoms since presentation. Shortness of breath resolved. Vital signs have been stable. Most recent temperature was 97.5, pulse 60, respirations 17, oxygenation 97% on room air, blood pressure 128/65. There have been no events or arrhythmias noted on telemetry. She was started on Coreg 3.125 mg p.o. b.i.d., lisinopril 2.5 mg a day, which has since been increased to 5 mg a day. Although it is felt that she has suffered from takotsubo cardiomyopathy, decision was made to place her on aspirin 81 mg a day in combination with Lipitor 20 mg a day. Again, she had mild transaminitis, so she will need repeat liver function test in 6 to 8 weeks ' time. She is stable, asymptomatic and has been ambulating in the halls. Right radial access was examined. There was no evidence of hematoma. 3+ radial pulse noted. Nontender to palpation. Plan is to discharge the patient home. She is in stable condition. DISCHARGE MEDICATIONS: 1. Aspirin 81 mg a day. 2. Lipitor 20 mg p.o. q.h.s. 3. Coreg 3.125 mg p.o. b.i.d. 4. Lisinopril 5 mg a day. 5. Tylenol as directed. ACTIVITY RESTRICTIONS: The patient was advised to not drive for 48 hours, to remain inactive for 5 to 7 days. She is aware that we will address cardiac rehab at her followup appointment. She is aware to not lift more than 5 to 10 pounds till further directed. FOLLOWUP APPOINTMENTS: 1. The patient is to follow up with PCP, Dr. Laurent Gustafson in 7 to [address] Julián Batista on 05/03/19 at 12:15 p.m. DISPOSITION: Stable to be discharged home. Dr. Olivia Celaya has personally seen and examined the patient and agrees with the above assessment and plan. JOHN BRIONES, POT[employer] CH[employer]OOK[employer] MACHINE [id number]/[facility] #: [id number] STEPHANIE
[2019-04-24] MEDS ORDERED: Atorvastatin* 20 MG TAB PO SCH (17:00)
[2019-04-25] MEDS ORDERED: Lisinopril TAB* 5 MG PO SCH (09:00)
== END 2019-04-24 17:31 | disposition home or self-care (01) | DRG 287 ==
LOC: ED 13:18 → MEDTELE 16:45 → UNDOADMOB 16:45 → INTOOBSV 17:00 → OBSVTOIN 17:00 → UNDODISIN 04-24 17:31
PROVIDERS: ADMIT Specialist; ATTEND Specialist
PROC: B2151ZZ Fluoroscopy of Left Heart using Low Osmolar Contrast (ICD-10-PCS; 2019-04-23)
PROC: 4A023N7 Measurement of Cardiac Sampling and Pressure, Left Heart, Percutaneous Approach (ICD-10-PCS; 2019-04-23)
PROC: B2111ZZ Fluoroscopy of Multiple Coronary Arteries using Low Osmolar Contrast (ICD-10-PCS; principal; 2019-04-23 16:00)
DX: I51.81 Takotsubo syndrome (principal); I10 Essential (primary) hypertension; E78.00 Pure hypercholesterolemia, unspecified; R74.0 Nonspecific elevation of levels of transaminase and lactic acid dehydrogenase [LDH]; I77.819 Aortic ectasia, unspecified site; E03.9 Hypothyroidism, unspecified; E66.9 Obesity, unspecified; Z79.890 Hormone replacement therapy; Z79.82 Long term (current) use of aspirin; Z79.899 Other long term (current) drug therapy; Z68.41 Body mass index [BMI] 40.0-44.9, adult; Z91.040 Latex allergy status
CPT/HCPCS: 36415; 71045; 80048; 80053; 80061; 82550; 82553; 84484; 85025; 85610; 85730; 93005; 93306; 93458; 96372; 99156; 99157; 99284; A9270-GY; J1644; J2250; J3010